=== PATIENT | female | born 1940 | race Caucasian/White ===

== ENCOUNTER 2016-06-01 19:10 | Emergency (ER) | payer OTHER ==
[~2016-06-01] VITALS: Ht 162.6 cm; Wt 118.2 kg
[~2016-06-01 19:10] MED LIST: BACTRIM,SEPT1 TABLE1 PO; BACTRIM,SEPT1 TABLET PO; BENADRYL25 MG PO; CALCIUM 600 +1 EAC3 PO; CALCIUM 600 +1 EAC4 PO; EFFEXOR XR75 MG PO; FLEXERIL5 MG PO; IRON325 M1 PO; KADIAN30 MG PO; LIPITOR20 MG PO; MIRALAX17 GM PO; MOVE FREE JOIN1 EACH PO; NORVASC2.5 MG PO; OMEPRAZOLE40 M1 PO; OXYCODONE HCL10 MG PO; OXYCODONE HCL5 MG PO; PRILOSEC40 MG PO; PROVENTIL HFA6.7 GM IH; PULMICORT FLE180 MCG IH; SENNA PLUS TAB1 EACH PO; SEPTRA 80-4001 EACH PO; TYLENOL ARTHRI650 MG PO; WOMEN'S DAILY1 EAC4 PO; XARELTO10 MG PO; ZANTAC150 MG PO
[2016-06-01 20:34] LABS: HEMATOCRIT 37.6 % (36.0-46.0); MCHC 31.6 G/DL (30.0-36.0); MCV 94.7 FL (83-99); MEAN PLAT.VOLUME 9.6 uM^3 (9.5-12.4); PLATELET COUNT 267 K/uL (156-360); RBC DIS.WIDTH-SD 46.1 % (39-53); RED BLOOD COUNT 3.97 M/uL (3.80-5.20); WHITE BLOOD COUNT 6.8 K/uL (4.1-10.2)
[2016-06-01 20:51] LABS: CHLORIDE 112 mEq/L (99-109); POTASSIUM 3.4 mEq/L (3.7-5.4); SODIUM 145 mEq/L (136-147)
[2016-06-01 20:53] LABS: GLUCOSE 105 mg/dL (70-99)
[2016-06-01 20:54] LABS: ANION GAP 9 MEQ/L (2-14)
[2016-06-01 20:55] LABS: TOTAL BILIRUBIN 0.3 mg/dL (0.0-1.0)
[2016-06-01 20:57] LABS: ALKALINE PHOSPHATASE 118 IU/L (3-129); GFR ESTIMATE (CALCULATED) > 59 mL/min/
[2016-06-01 20:58] LABS: UREA NITROGEN (BUN) 11 mg/dL (9-23)
[2016-06-01 21:32] LABS: ADD MIUA? NO; BILIRUBIN NEGATIVE; BLOOD NEGATIVE; COLOR YELLOW ((YELLOW)); GLUCOSE (STRIP) NEGATIVE; KETONES 5; LEUKOCYTES NEGATIVE; NITRITE NEGATIVE; PROTEIN (STRIP) NEGATIVE; SPECIFIC GRAVITY 1.012 (1.000-1.030); UCUL ADDED? NO; UROBILINOGEN 0.2 MG/DL (0.2-1.0)
[2016-06-01] MEDS ORDERED: FLAGYL500 MG PO (22:34)
[2016-06-01 23:11] VITALS: BP 151/78
== END 2016-06-01 23:11 | disposition home or self-care (01) ==
LOC: EME 19:10
DX: R19.7 Diarrhea, unspecified (principal); K57.92 Diverticulitis of intestine, part unspecified, without perforation or abscess without bleeding; A50.02 Early congenital syphilitic osteochondropathy; I73.00 Raynaud's syndrome without gangrene; K21.9 Gastro-esophageal reflux disease without esophagitis
CPT/HCPCS: 74177; 80053; 81003; 85027; 99281; 99285; J7030

== ENCOUNTER 2016-08-07 06:39 | Day surgery (SDC) | payer OTHER ==
[~2016-08-07] VITALS: Ht 160 cm; Wt 90.8 kg
[~2016-08-07 06:39] MED LIST changes: +FLAGYL500 MG PO; +MIRALAX255 GM PO; +ZINC50 M1 PO
[2016-08-07 07:32] VITALS: BP 103/54
[2016-08-07 12:58] VITALS: BP 112/59
[2016-08-07 15:44] VITALS: BP 106/59
[2016-08-07 19:15] VITALS: BP 115/59
[2016-08-08 00:24] VITALS: BP 120/58
[2016-08-08 03:03] VITALS: BP 115/63
[2016-08-08 07:17] LABS: EOSINOPHIL (%) 0.4 % (0-5); HEMATOCRIT 32.5 % (36.0-46.0); IMMATURE GRANULOCYTE (%) 0.4 % (0.0-0.7); INSTRUMENT ABS NEUTROPHIL CT 6.6 K/uL; LYMPHOCYTE COUNT 1.1 K/uL (1.0-2.8); MCH 30.1 PG (29.0-34.0); MCHC 31.1 G/DL (30.0-36.0); MEAN PLAT.VOLUME 9.9 uM^3 (9.5-12.4); MONOCYTE (%) 7.4 % (3-12); MONOCYTE COUNT 0.6 K/uL (0-0.8); NEUTROPHIL COUNT 6.6 K/uL (1.8-6.4); PLATELET COUNT 250 K/uL (156-360); RBC DIS.WIDTH-CV 13.3 % (11.8-14.6); RBC DIS.WIDTH-SD 47.4 % (39-53); RED BLOOD COUNT 3.35 M/uL (3.80-5.20)
[2016-08-08 07:20] LABS: WHITE BLOOD COUNT 8.3 K/uL (4.1-10.2)
[2016-08-08 08:11] VITALS: BP 140/65
[2016-08-08 08:53] LABS: ANION GAP 6 MEQ/L (2-14); CHLORIDE 104 MEQ/L (99-109); GFR ESTIMATE (CALCULATED) > 59 mL/min/; GLUCOSE 91 mg/dL (70-99); POTASSIUM 4.3 MEQ/L (3.7-5.4); SAMPLE HEMOLYSIS CHECK 0; SAMPLE ICTERIC CHECK 0; SAMPLE LIPEMIA CHECK 0; SODIUM 142 MEQ/L (136-147); UREA NITROGEN (BUN) 14 mg/dL (9-23)
[2016-08-08 10:39] VITALS: BP 126/64
== END 2016-08-08 11:15 | disposition home or self-care (01) ==
LOC: SDC 06:39 → 2SOUTH 10:54 → 2EAST 10:54 → 2SOUTH 10:54 → 2EAST 12:50 → SDC 13:58 → 2EAST 08-08 11:15
PROVIDERS: Obstetrics & Gynecology Gynecology
DX: N83.201 Unspecified ovarian cyst, right side (principal); K57.30 Diverticulosis of large intestine without perforation or abscess without bleeding; N83.312 Acquired atrophy of left ovary; N81.12 Cystocele, lateral; E66.9 Obesity, unspecified; Z68.30 Body mass index [BMI] 30.0-30.9, adult; K21.9 Gastro-esophageal reflux disease without esophagitis; I35.0 Nonrheumatic aortic (valve) stenosis; I10 Essential (primary) hypertension; J45.909 Unspecified asthma, uncomplicated; E78.5 Hyperlipidemia, unspecified; I73.00 Raynaud's syndrome without gangrene; Z96.659 Presence of unspecified artificial knee joint; Z82.0 Family history of epilepsy and other diseases of the nervous system; Z83.3 Family history of diabetes mellitus
CPT/HCPCS: 80048; 85025; 87086; 88108; 88160; 88305; 94640; 94640 76; G0378; J0131; J0690; J1100; J1170; J1644; J1885; J2250; J2405; J2710; J2765; J3010; J7120

== ENCOUNTER → 2016-10-10 | Outpatient (CLI) | payer OTHER | END | disposition home or self-care (01) | LOC: NUC 10:59 | DX: R93.7 Abnormal findings on diagnostic imaging of other parts of musculoskeletal system (principal); Z96.651 Presence of right artificial knee joint; M25.562 Pain in left knee; M17.12 Unilateral primary osteoarthritis, left knee | CPT/HCPCS: 78315; A9540 ==